=== PATIENT | male | born 1990 | race Caucasian/White ===

== ENCOUNTER 2019-11-28 23:25 | Emergency (ER) | payer SELFPAY ==
[~2019-11-28] VITALS: Ht 170.2 cm; Wt 70.5 kg
[2019-11-28 23:28] VITALS: BP 131/94; TEMP 98.6
[2019-11-29] MEDS ORDERED: CEPHALEXIN500 M1 PO (02:23)
[2019-11-29] MEDS ORDERED: NORCO 325 MG-51 TAB PO (02:23)
[2019-11-29 03:43] VITALS: PULSE 72
== END 2019-11-29 03:43 | disposition home or self-care (01) ==
LOC: COL.ER 23:25
DX: S61.511A Laceration without foreign body of right wrist, initial encounter (principal); S61.411A Laceration without foreign body of right hand, initial encounter; F17.210 Nicotine dependence, cigarettes, uncomplicated; Z23 Encounter for immunization; W01.198A Fall on same level from slipping, tripping and stumbling with subsequent striking against other object, initial encounter; Y92.009 Unspecified place in unspecified non-institutional (private) residence as the place of occurrence of the external cause